=== PATIENT | male | born 1975 | race Caucasian/White ===

== ENCOUNTER 2020-09-01 08:21 | Emergency (ER) | payer BC ==
[2020-09-01] MEDS ORDERED: Acetaminophen 500 MG TAB ONE (08:30)
[2020-09-01] MEDS ORDERED: Ibuprofen 200 MG TAB ONE (08:30)
--- NOTE | 2020-09-01 09:14 | RAD ---
XR Chest 1 View Portable History: Elevated pneumonia Comparison: None. Findings: Lungs are clear. No pneumothorax or effusion. Cardiac silhouette and mediastinal contours a re within normal limits. No acute osseous abnormality. Impression: No acute intrathoracic abnormality.
[2020-09-01 09:15] LABS: #Lymphocytes 1.1 thou/uL (1.20-3.40); #Monocytes 0.6 thou/uL (0.11-0.59); #Neutrophils 6.4 thou/uL (1.40-6.50); %Basophils 0.1 % (0.0-1.0); %Eosinophils 0.2 % (0.0-10.0); %Lymphocytes 13.3 % (21.0-51.0); %Monocytes 7.7 % (0.0-10.0); %Neutrophils 78.7 % (42.0-75.0); Hemoglobin 11.4 g/dL (14.0-18.0); Mean Corpuscular HGB CONC 33.2 g/dL (32.0-36.0); Mean Corpuscular Hemoglobin 29.7 pg (27.0-31.0); Mean Corpuscular Volume 89.5 fL (78.0-98.0); Platelet Count 156 thou/uL (130-400); RBC Distribution Width 11.3 % (11.5-14.5); Red Blood Cell (RBC) Count 3.83 mill/uL (4.70-6.10); White Blood Cell (WBC) Count 8.2 thou/uL (4.8-10.8)
[2020-09-01 09:37] LABS: ALT (SGPT) 125 U/L (8-55); AST (SGOT) 66 U/L (5-34); Albumin 3.4 g/dL (3.5-5.0); Alkaline Phosphatase 97 U/L (40-110); Anion Gap 15 mmol/L (10-20); BUN (Urea Nitrogen) 19 mg/dL (8.9-20.6); Bilirubin, Total 0.3 mg/dL (0.2-1.2); Calc. Creatinine Clearance 0 mL/min (70-130); Calcium 7.7 mg/dL (7.8-10.44); Carbon Dioxide 23 mmol/L (22-29); Chloride 101 mmol/L (98-107); Globulin 2.8 g/dL (2.4-3.5); Glucose 93 mg/dL (70-105); Lipase 22 U/L (8-78); Potassium 3.4 mmol/L (3.5-5.1); Protein, Total 6.2 g/dL (6.0-8.3); Sodium 136 mmol/L (136-145)
== END 2020-09-01 11:19 | disposition home or self-care (01) ==
LOC: ERS 08:21
DX: U07.1 COVID-19 (principal)
CPT/HCPCS: 36415; 71045; 80053; 83605; 83690; 84484; 85025; 87040; 87804; 93005; 94760

== ENCOUNTER 2023-06-01 15:09 | Outpatient (CLI) | payer BC | END 2023-06-01 15:10 | disposition home or self-care (01) | LOC: ULT 15:09 | PROVIDERS: ATTEND Family Medicine | DX: M54.6 Pain in thoracic spine (principal) | CPT/HCPCS: 76999 ==